=== PATIENT | male | born 1950 | race Caucasian/White ===

== ENCOUNTER → 2021-07-01 | Outpatient (CLI) | payer MEDICARE, BC ==
--- NOTE | 2021-07-01 12:48 | KCIC ---
MR LUMBAR SPINE WO [id number] Date: 07/01/2021 10:00 AM Indication: LUMBAGO. Surgery 25 yrs ago. Acute LBP shooting down right leg x 10 days. NKI. Comparison: 06/06/2019. Technique: Multi-planar multi-weighted magnetic resonance imaging of the lumbar spine was performed w ithout intravenous contrast using the standard lumbar spine protocol. FINDINGS: Trace anterolisthesis at L5-S1. No acute fracture. Moderate to severe multilevel degenerative disc de siccation and disc height loss. Fatty degenerative endplate changes at L3-4. Degenerative endplate ed jordan at L4-5, increased from the prior. The conus terminates at a normal level. No abnormal signal is seen within the visualized distal spina l cord. No clumping of intrathecal nerve roots. No soft tissue abnormality in the visualized abdomen or pelvis. T12-L1: Disc bulge. Mild facet arthropathy. No significant spinal stenosis or neural foraminal narrow ing. L1-L2: Disc bulge. Mild facet arthropathy. No significant spinal stenosis or neural foraminal narrowi ng. L2-L3: Disc bulge. Mild facet arthropathy. Prominent dorsal epidural fat. Mild spinal stenosis. Mild right and moderate left neural foraminal narrowing. L3-L4: Disc bulge. Moderate facet arthropathy. Prominent dorsal epidural fat. Moderate spinal stenosi s, progressed from the prior. Mild right and severe left lateral recess narrowing. Moderate to severe right and severe left neural foraminal narrowing. L4-L5: Disc bulge. Moderate facet arthropathy. Prominent dorsal epidural fat. Moderate spinal stenosi s, progressed from the prior. Severe lateral recess narrowing. Severe bilateral neural foraminal narr owing. L5: Disc extrusion versus sequestrated disc fragment in the midline epidural space with moderate spin al canal stenosis. L5-S1: Disc bulge with far lateral protrusion. Mild facet arthropathy. No spinal stenosis. Mild right lateral recess narrowing. Severe bilateral neural foraminal narrowing. S1: Disc extrusion versus sequestered disc fragment in the right paracentral epidural space with mild spinal canal stenosis. IMPRESSION: 1. Advanced lumbar spondylosis with moderate spinal canal stenosis at L3-4 and L4-5, progressed from the prior. 2. Disc extrusions versus sequestrated disc fragments in the ventral epidural space at L5 and S1 whic h contribute to spinal canal stenosis, new from the prior exam. Electronically signed by: Tyron James MD (07/01/2021 12:46 PM) [id number]
== END ==
LOC: KCIC MRI 09:06
PROVIDERS: ATTEND Physician Assistant Medical
DX: M47.817 Spondylosis without myelopathy or radiculopathy, lumbosacral region (principal); M47.815 Spondylosis without myelopathy or radiculopathy, thoracolumbar region; M51.25 Other intervertebral disc displacement, thoracolumbar region; M51.27 Other intervertebral disc displacement, lumbosacral region; M48.07 Spinal stenosis, lumbosacral region
CPT/HCPCS: 72148